=== PATIENT | female | born 1990 | race Caucasian/White ===

== ENCOUNTER 2017-07-09 14:49 | Emergency (ER) | payer MEDICAID ==
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
[2017-07-09 17:53] VITALS: BP 110/69; PULSE 78; RESP 19; TEMP 98.1; O2SAT 98
== END 2017-07-09 17:55 | disposition home or self-care (01) ==
DX: R11.0 Nausea (principal); R41.82 Altered mental status, unspecified; F17.200 Nicotine dependence, unspecified, uncomplicated
CPT/HCPCS: 80305; 83919-90